=== PATIENT | female | born 1975 | race Caucasian/White ===

== ENCOUNTER 2020-12-06 15:36 | Emergency (ER) | payer OTHER ==
[~2020-12-06] VITALS: Ht 165.1 cm; Wt 93.7 kg
[2020-12-06] MEDS ORDERED: LISI20TA20 PO (15:43)
[2020-12-06] MEDS ORDERED: BACITRACIN OINTMENT 30GM TUBE TOP STA (19:17)
[2020-12-06] MEDS ORDERED: NORCO, ANEXSIA 5/325MG TABLET (HYDROcodone/ACETAMINOPHEN) PO ONE (19:20)
[2020-12-06] MEDS ORDERED: BACI500O21 TOP (19:21)
[2020-12-06] MEDS ORDERED: HYDR-3713 PO (19:21)
[2020-12-06 20:22] VITALS: BP 148/102
== END 2020-12-06 20:31 | disposition home or self-care (01) ==
LOC: M ED 15:36
DX: T22.011A Burn of unspecified degree of right forearm, initial encounter (principal); T22.012A Burn of unspecified degree of left forearm, initial encounter; Y92.238 Other place in hospital as the place of occurrence of the external cause; Z77.098 Contact with and (suspected) exposure to other hazardous, chiefly nonmedicinal, chemicals; I10 Essential (primary) hypertension; Z79.899 Other long term (current) drug therapy